=== PATIENT | male | born 1960 | race Caucasian/White ===

== ENCOUNTER 2022-02-26 17:01 | Inpatient (IN) | payer BC, MEDICARE, SELFPAY ==
[~2022-02-26 17:01] MED LIST: Iopamidol-370 76% 500 ML 1 ML ONE
[2022-02-26 17:52] LABS: #Lymphocytes 1.1 thou/uL (1.20-3.40); #Monocytes 1.2 thou/uL (0.11-0.59); #Neutrophils 13.5 thou/uL (1.40-6.50); %Basophils 0.2 % (0.0-1.0); %Eosinophils 0.2 % (0.0-10.0); %Lymphocytes 7.2 % (21.0-51.0); %Monocytes 7.4 % (0.0-10.0); %Neutrophils 85.1 % (42.0-75.0); Mean Corpuscular HGB CONC 34.2 g/dL (32.0-36.0); Mean Corpuscular Hemoglobin 31.3 pg (27.0-31.0); Mean Corpuscular Volume 91.4 fL (78.0-98.0); Mean Platelet Volume 7.8 fL (7.4-10.4); Platelet Count 295 thou/uL (130-400); RBC Distribution Width 12.4 % (11.5-14.5); Red Blood Cell (RBC) Count 4.79 mill/uL (4.70-6.10); White Blood Cell (WBC) Count 15.9 thou/uL (4.8-10.8)
[2022-02-26 18:08] LABS: ALT (SGPT) 34 U/L (8-55); AST (SGOT) 34 U/L (5-34); Albumin 3.3 g/dL (3.4-4.8); Alkaline Phosphatase 62 U/L (40-110); Anion Gap 24 mmol/L (10-20); BUN (Urea Nitrogen) 15 mg/dL (8.4-25.7); Bilirubin, Total 2.4 mg/dL (0.2-1.2); CRP (Inflammatory) 19.84 mg/dL (= or < 0.5); Calc. Creatinine Clearance 0 mL/min (70-130); Calcium 8.9 mg/dL (7.8-10.44); Carbon Dioxide 19 mmol/L (23-31); Chloride 96 mmol/L (98-107); Estimated GFR 60; Globulin 4.4 g/dL (2.4-3.5); Glucose 141 mg/dL (80-115); Potassium 4.5 mmol/L (3.5-5.1); Protein, Total 7.7 g/dL (5.8-8.1); Sodium 134 mmol/L (136-145)
[2022-02-26] MEDS ORDERED: Morphine 4 MG/ML VIAL ONE (18:36)
[2022-02-26] MEDS ORDERED: Enoxaparin Sodium 40 MG/0.4 ML SYRINGE ONE (18:37)
[2022-02-26] MEDS ORDERED: Enoxaparin Sodium 80 MG/0.8 ML SYRINGE ONE (18:37)
[2022-02-26] MEDS ORDERED: Ondansetron PF 4 MG/2 ML Vial ONE (18:37)
[2022-02-26] MEDS ORDERED: Aspirin Chewable 81 MG TAB ONE (18:37)
[2022-02-26] MEDS ORDERED: Cefepime 2 GM VIAL ONE (18:39)
[2022-02-26 18:43] LABS: INR-International Normal Ratio 1.5; PTT 27.5 sec (22.9-36.1)
[2022-02-26] MEDS ORDERED: Vancomycin 1 GM/200 ML BAG ONE (19:39)
[2022-02-26 20:49] LABS: Lactic Acid 1.4 mmol/L (0.5-2.2)
[2022-02-26 21:08] LABS: Troponin I Less than 0.010 ng/mL (< 0.028)
[2022-02-26 23:05] LABS: SARS-CoV-2 NAA Rapid Test Not Detected (NotDetected)
[2022-02-27 00:31] LABS: Troponin I 0.013 ng/mL (< 0.028)
[2022-02-27] MEDS ORDERED: Ondansetron PF 4 MG/2 ML Vial IVP PRN (02:39)
[2022-02-27] MEDS ORDERED: Cefepime 1 GM VIAL ONE (03:57)
[2022-02-27 05:06] LABS: #Eosinphils 0.1 thou/uL (0.0-0.7); #Lymphocytes 2.2 thou/uL (1.20-3.40); #Monocytes 1.1 thou/uL (0.11-0.59); #Neutrophils 9.1 thou/uL (1.40-6.50); %Basophils 0.3 % (0.0-1.0); %Eosinophils 0.6 % (0.0-10.0); %Lymphocytes 17.5 % (21.0-51.0); %Neutrophils 72.6 % (42.0-75.0); Mean Corpuscular HGB CONC 34.1 g/dL (32.0-36.0); Mean Corpuscular Hemoglobin 31.1 pg (27.0-31.0); Mean Corpuscular Volume 91.2 fL (78.0-98.0); Mean Platelet Volume 7.9 fL (7.4-10.4); Platelet Count 239 thou/uL (130-400); RBC Distribution Width 12.3 % (11.5-14.5); Red Blood Cell (RBC) Count 4.52 mill/uL (4.70-6.10); White Blood Cell (WBC) Count 12.6 thou/uL (4.8-10.8)
[2022-02-27] MEDS ORDERED: Acetaminophen 325 MG TAB ONE (05:14)
[2022-02-27 05:15] LABS: Bacteria/HPF None Seen HPF (None Seen); Bilirubin 1+ (Negative); Blood, Urine Negative (Negative); Clarity Clear (Clear); Glucose, Urine (Dipstick) Normal (Negative); Ketone, Urine 20 mg/dL (Negative); Leukocyte Negative Leu/uL (Negative); Mucous/LPF Rare LPF (<2+); Nitrite Negative (Negative); Protein, Urine (Dipstick) 30 mg/dL (Neg-Trace); RBC/HPF 0-3 HPF (0-3); Squamous Epithelial None Seen HPF (0-3); Urobilinogen 12 mg/dL (Less than 2); WBC/HPF 0-3 HPF (0-3)
[2022-02-27 05:16] LABS: Specific Gravity, Urine 1.063 (1.002-1.036)
[2022-02-27] MEDS: Acetaminophen 325 MG TAB PO PRN (05:16)
[2022-02-27 05:17] LABS: Urine Culture Reflex No No
[2022-02-27 05:25] LABS: ALT (SGPT) 28 U/L (8-55); AST (SGOT) 34 U/L (5-34); Albumin 3.1 g/dL (3.4-4.8); Alkaline Phosphatase 58 U/L (40-110); Bilirubin, Direct 0.7 mg/dL (0.1-0.3); Bilirubin, Total 1.3 mg/dL (0.2-1.2); Protein, Total 7.5 g/dL (5.8-8.1)
[2022-02-27 05:27] LABS: Anion Gap 13 mmol/L (10-20); BUN (Urea Nitrogen) 13 mg/dL (8.4-25.7); Calc. Creatinine Clearance 158 mL/min (70-130); Calcium 8.8 mg/dL (7.8-10.44); Carbon Dioxide 24 mmol/L (23-31); Chloride 101 mmol/L (98-107); Estimated GFR 93; Glucose 137 mg/dL (80-115); Magnesium 2.2 mg/dL (1.6-2.6); Potassium 3.6 mmol/L (3.5-5.1); Sodium 134 mmol/L (136-145)
[2022-02-27] MEDS ORDERED: Vancomycin 1.5 GRAM/300 ML BAG 1.5 GM in Premix Bag 1 BAG IVPB SCH (06:00)
[2022-02-27] MEDS ORDERED: Cefepime 1 GM in Sodium Chloride 0.9% 100 ML IVPB SCH ×2 (08:00→12:00)
[2022-02-27] MEDS ORDERED: Enoxaparin Sodium 100 MG/ML SYRINGE SC SCH (09:00)
[2022-02-27] MEDS ORDERED: Enoxaparin Sodium 30 MG/0.3 ML SYRINGE SC SCH (09:00)
[2022-02-27] MEDS: Ketoconazole 2% Cream 15 gm Tube TOP SCH (09:30)
[2022-02-27] MEDS ORDERED: Apixaban 5 MG TAB PO SCH (10:00)
[2022-02-27] MEDS ORDERED: traMADol HCl 50 MG TAB PO PRN (14:25)
[2022-02-27] MEDS: traMADol HCl 50 MG TAB PO PRN (19:48)
[2022-02-27] MEDS: Apixaban 5 MG TAB PO SCH (19:48)
[2022-02-28 06:37] LABS: #Eosinphils 0.1 thou/uL (0.0-0.7); #Lymphocytes 1.6 thou/uL (1.20-3.40); #Monocytes 0.8 thou/uL (0.11-0.59); #Neutrophils 6.2 thou/uL (1.40-6.50); %Basophils 0.1 % (0.0-1.0); %Eosinophils 1.1 % (0.0-10.0); %Lymphocytes 18.5 % (21.0-51.0); %Monocytes 9.4 % (0.0-10.0); Hemoglobin 12.9 g/dL (14.0-18.0); Mean Corpuscular Hemoglobin 29.2 pg (27.0-31.0); Mean Corpuscular Volume 91.3 fL (78.0-98.0); Mean Platelet Volume 7.6 fL (7.4-10.4); Platelet Count 216 thou/uL (130-400); RBC Distribution Width 12.3 % (11.5-14.5); Red Blood Cell (RBC) Count 4.41 mill/uL (4.70-6.10); White Blood Cell (WBC) Count 8.8 thou/uL (4.8-10.8)
[2022-02-28 06:59] LABS: Anion Gap 13 mmol/L (10-20); BUN (Urea Nitrogen) 9 mg/dL (8.4-25.7); Calc. Creatinine Clearance 179 mL/min (70-130); Calcium 8.4 mg/dL (7.8-10.44); Carbon Dioxide 24 mmol/L (23-31); Chloride 103 mmol/L (98-107); Estimated GFR 99; Glucose 97 mg/dL (80-115); Magnesium 1.9 mg/dL (1.6-2.6); Potassium 3.6 mmol/L (3.5-5.1); Sodium 136 mmol/L (136-145)
[2022-02-28] MEDS: Apixaban 5 MG TAB PO SCH ×2 (07:28→20:27)
[2022-02-28] MEDS: traMADol HCl 50 MG TAB PO PRN ×2 (12:11→20:27)
[2022-02-28] MEDS: Ketoconazole 2% Cream 15 gm Tube TOP SCH (12:14)
[2022-02-28] MEDS: Morphine 2 MG/ML VIAL SLOW IVP PRN (22:29)
[2022-03-01] MEDS: traMADol HCl 50 MG TAB PO PRN ×3 (02:18→23:19)
[2022-03-01] MEDS: Apixaban 5 MG TAB PO SCH ×2 (07:24→21:11)
[2022-03-01] MEDS: Ketoconazole 2% Cream 15 gm Tube TOP SCH (07:28)
[2022-03-01 07:33] LABS: #Eosinphils 0.1 thou/uL (0.0-0.7); #Lymphocytes 1.7 thou/uL (1.20-3.40); #Monocytes 1.2 thou/uL (0.11-0.59); #Neutrophils 7.7 thou/uL (1.40-6.50); %Basophils 0.2 % (0.0-1.0); %Eosinophils 0.6 % (0.0-10.0); %Lymphocytes 16.3 % (21.0-51.0); %Monocytes 10.8 % (0.0-10.0); Hemoglobin 13.3 g/dL (14.0-18.0); Mean Corpuscular HGB CONC 32.3 g/dL (32.0-36.0); Mean Corpuscular Hemoglobin 29.9 pg (27.0-31.0); Mean Corpuscular Volume 92.4 fL (78.0-98.0); Mean Platelet Volume 7.9 fL (7.4-10.4); Platelet Count 233 thou/uL (130-400); RBC Distribution Width 12.4 % (11.5-14.5); Red Blood Cell (RBC) Count 4.46 mill/uL (4.70-6.10); White Blood Cell (WBC) Count 10.7 thou/uL (4.8-10.8)
[2022-03-01 07:36] LABS: Anion Gap 13 mmol/L (10-20); BUN (Urea Nitrogen) 9 mg/dL (8.4-25.7); Calc. Creatinine Clearance 158 mL/min (70-130); Calcium 8.6 mg/dL (7.8-10.44); Carbon Dioxide 26 mmol/L (23-31); Chloride 98 mmol/L (98-107); Estimated GFR 91; Glucose 112 mg/dL (80-115); Potassium 3.9 mmol/L (3.5-5.1); Sodium 133 mmol/L (136-145)
[2022-03-01] MEDS ORDERED: Colchicine 0.6 MG TAB PO SCH ×3 (18:45→19:50)
[2022-03-02] MEDS: Morphine 2 MG/ML VIAL SLOW IVP PRN ×2 (05:52→17:04)
[2022-03-02 07:39] LABS: #Lymphocytes 1.9 thou/uL (1.20-3.40); #Monocytes 1.3 thou/uL (0.11-0.59); #Neutrophils 9.3 thou/uL (1.40-6.50); %Basophils 0.2 % (0.0-1.0); %Eosinophils 0.3 % (0.0-10.0); %Lymphocytes 15.4 % (21.0-51.0); %Monocytes 10.4 % (0.0-10.0); %Neutrophils 73.7 % (42.0-75.0); Hemoglobin 12.8 g/dL (14.0-18.0); Mean Corpuscular HGB CONC 32.5 g/dL (32.0-36.0); Mean Corpuscular Volume 92.1 fL (78.0-98.0); Mean Platelet Volume 8.1 fL (7.4-10.4); Platelet Count 230 thou/uL (130-400); RBC Distribution Width 12.5 % (11.5-14.5); Red Blood Cell (RBC) Count 4.27 mill/uL (4.70-6.10); White Blood Cell (WBC) Count 12.6 thou/uL (4.8-10.8)
[2022-03-02] MEDS: Ketoconazole 2% Cream 15 gm Tube TOP SCH (08:43)
[2022-03-02] MEDS: Apixaban 5 MG TAB PO SCH ×2 (08:43→20:46)
[2022-03-02] MEDS: traMADol HCl 50 MG TAB PO PRN (08:44)
[2022-03-02] MEDS ORDERED: Bisacodyl 5 MG TAB PO PRN (10:46)
[2022-03-02] MEDS ORDERED: Colchicine 0.6 MG TAB PO SCH (11:30)
[2022-03-02] MEDS ORDERED: Bisacodyl 5 MG TAB PO SCH (11:30)
[2022-03-02] MEDS: Acetaminophen 325 MG TAB PO PRN (19:31)
[2022-03-02] MEDS: Colchicine 0.6 MG TAB PO SCH (20:47)
[2022-03-03] MEDS: Morphine 2 MG/ML VIAL SLOW IVP PRN (06:26)
[2022-03-03] MEDS: Acetaminophen 325 MG TAB PO PRN (06:27)
[2022-03-03 06:42] LABS: #Eosinphils 0.1 thou/uL (0.0-0.7); #Lymphocytes 1.6 thou/uL (1.20-3.40); #Monocytes 0.9 thou/uL (0.11-0.59); #Neutrophils 7.6 thou/uL (1.40-6.50); %Basophils 0.1 % (0.0-1.0); %Eosinophils 0.8 % (0.0-10.0); %Lymphocytes 15.2 % (21.0-51.0); %Monocytes 9.1 % (0.0-10.0); %Neutrophils 74.7 % (42.0-75.0); Hemoglobin 12.4 g/dL (14.0-18.0); Mean Corpuscular HGB CONC 33.2 g/dL (32.0-36.0); Mean Corpuscular Hemoglobin 30.4 pg (27.0-31.0); Mean Corpuscular Volume 91.7 fL (78.0-98.0); Platelet Count 229 thou/uL (130-400); RBC Distribution Width 12.4 % (11.5-14.5); Red Blood Cell (RBC) Count 4.07 mill/uL (4.70-6.10); White Blood Cell (WBC) Count 10.2 thou/uL (4.8-10.8)
[2022-03-03] MEDS: Colchicine 0.6 MG TAB PO SCH ×2 (08:02→19:33)
[2022-03-03] MEDS: Apixaban 5 MG TAB PO SCH ×2 (08:02→19:33)
[2022-03-03] MEDS: Ketoconazole 2% Cream 15 gm Tube TOP SCH (08:02)
[2022-03-03] MEDS: methylPREDNISolone Sod Succ 40 MG VIAL IVP SCH ×2 (09:48→19:31)
[2022-03-04 06:12] LABS: #Lymphocytes 1.2 thou/uL (1.20-3.40); #Monocytes 0.7 thou/uL (0.11-0.59); #Neutrophils 11.1 thou/uL (1.40-6.50); %Basophils 0.1 % (0.0-1.0); %Eosinophils 0.1 % (0.0-10.0); %Monocytes 5.4 % (0.0-10.0); %Neutrophils 85.4 % (42.0-75.0); Hemoglobin 12.8 g/dL (14.0-18.0); Mean Corpuscular HGB CONC 33.3 g/dL (32.0-36.0); Mean Corpuscular Hemoglobin 30.1 pg (27.0-31.0); Mean Corpuscular Volume 90.3 fL (78.0-98.0); Platelet Count 273 thou/uL (130-400); RBC Distribution Width 12.2 % (11.5-14.5); Red Blood Cell (RBC) Count 4.26 mill/uL (4.70-6.10)
[2022-03-04] MEDS: methylPREDNISolone Sod Succ 40 MG VIAL IVP SCH ×2 (09:01→21:37)
[2022-03-04] MEDS: Colchicine 0.6 MG TAB PO SCH ×2 (09:01→21:37)
[2022-03-04] MEDS: Apixaban 5 MG TAB PO SCH ×2 (09:01→21:36)
[2022-03-04] MEDS: Ketoconazole 2% Cream 15 gm Tube TOP SCH (09:01)
[2022-03-04 17:41] LABS: Cardiolipin IgG Ab 3.3 GPL-U/mL (<10 Negative); Cardiolipin IgM Ab 1.2 MPL-U/mL (<10 Negative); EliA APS New Method **** NEW METHOD ****; beta-2-Glycoprotein I IgG Ab 2.5 U/mL (<7 Negative); beta-2-Glycoprotein I IgM Abs Less than 2.9 U/mL (<7 Negative)
[2022-03-05] MEDS: traMADol HCl 50 MG TAB PO PRN (03:31)
[2022-03-05] MEDS: methylPREDNISolone Sod Succ 40 MG VIAL IVP SCH ×2 (08:03→21:03)
[2022-03-05] MEDS: Ketoconazole 2% Cream 15 gm Tube TOP SCH (08:03)
[2022-03-05] MEDS: Apixaban 5 MG TAB PO SCH ×2 (08:03→21:03)
[2022-03-05] MEDS: Colchicine 0.6 MG TAB PO SCH ×2 (08:03→21:03)
[2022-03-05] MEDS ORDERED: Ketorolac Tromethamine 30 MG/ML VIAL IVP SCH (10:30)
[2022-03-06] MEDS: Colchicine 0.6 MG TAB PO SCH ×2 (08:24→19:44)
[2022-03-06] MEDS: Ketoconazole 2% Cream 15 gm Tube TOP SCH (08:24)
[2022-03-06] MEDS: Apixaban 5 MG TAB PO SCH ×2 (08:24→19:44)
[2022-03-06] MEDS: methylPREDNISolone Sod Succ 40 MG VIAL IVP SCH ×2 (08:25→19:45)
[2022-03-06] MEDS ORDERED: Ketorolac Tromethamine 30 MG/ML VIAL IVP SCH (17:15)
[2022-03-06] MEDS ORDERED: Melatonin 3 MG TAB PO PRN (23:35)
[2022-03-07] MEDS: traMADol HCl 50 MG TAB PO PRN (03:49)
[2022-03-07] MEDS: Morphine 2 MG/ML VIAL SLOW IVP PRN (05:02)
[2022-03-07] MEDS: Acetaminophen 325 MG TAB PO PRN (08:37)
[2022-03-07] MEDS: methylPREDNISolone Sod Succ 40 MG VIAL IVP SCH (08:38)
[2022-03-07] MEDS: Apixaban 5 MG TAB PO SCH ×2 (08:38→19:48)
[2022-03-07] MEDS: Ketoconazole 2% Cream 15 gm Tube TOP SCH (08:38)
[2022-03-07] MEDS: Colchicine 0.6 MG TAB PO SCH ×2 (08:38→19:47)
[2022-03-08] MEDS: Ketoconazole 2% Cream 15 gm Tube TOP SCH (07:46)
[2022-03-08] MEDS: Apixaban 5 MG TAB PO SCH (07:46)
[2022-03-08] MEDS: Colchicine 0.6 MG TAB PO SCH (07:46)
[2022-03-08 08:52] VITALS: BP 117/72; TEMP 98.5
[2022-03-08] MEDS ORDERED: methylPREDNISolone Sod Succ 40 MG VIAL IVP SCH (09:00)
[2022-03-08 12:24] VITALS: BMI 40.4
[2022-03-09] MEDS ORDERED: predniSONE 20 MG TAB PO SCH (08:00)
== END 2022-03-08 15:48 | DRG 299 ==
LOC: ERS 17:01 → ERHOLD 20:38 → IMCU/EMU 02-27 08:08 → T4-A 03-01 20:35
PROVIDERS: ADMIT Internal Medicine; ATTEND Internal Medicine
DX: I82.411 Acute embolism and thrombosis of right femoral vein (principal); I26.94 Multiple subsegmental thrombotic pulmonary emboli without acute cor pulmonale; Z68.41 Body mass index [BMI] 40.0-44.9, adult; N17.9 Acute kidney failure, unspecified; E87.2 Acidosis; Z20.822 Contact with and (suspected) exposure to COVID-19; I10 Essential (primary) hypertension; E78.5 Hyperlipidemia, unspecified; M25.461 Effusion, right knee; M17.11 Unilateral primary osteoarthritis, right knee; M10.061 Idiopathic gout, right knee; F17.210 Nicotine dependence, cigarettes, uncomplicated; K74.60 Unspecified cirrhosis of liver; L30.4 Erythema intertrigo; F32.A Depression, unspecified; E66.01 Morbid (severe) obesity due to excess calories; Z98.890 Other specified postprocedural states; Z89.421 Acquired absence of other right toe(s); Z82.49 Family history of ischemic heart disease and other diseases of the circulatory system
CPT/HCPCS: 36415; 71045; 71275; 80048; 80053; 80076; 81001; 81241; 83605; 83735; 83880; 84484; 85025; 85610; 85652; 85730; 86140; 86146; 86147; 87040; 93005; 93306; 96365; 96367; 96372; 96375; J0692; J1650; J1885; J2270; J2405; J2920; J3370; Q9967; U0002; U0003; U0005